=== PATIENT | male | born 1950 | race Caucasian/White ===

== ENCOUNTER → 2017-02-07 | Outpatient (CLI) | payer OTHER ==
[2016-08-15 14:21] VITALS: BP 144/76; PULSE 76
[~2017-02-07] MED LIST: AMLO5TAB2 PO; ASPCH81X PO; IBUP-1050 PO; LISI20TA3 PO
[2017-02-07 14:02] VITALS: BP 152/85; PULSE 60; TEMP 36.6; O2SAT 97
--- NOTE | 2017-02-07 16:39 | Radiation Oncology Follow-Up ---
Radiation Oncology Follow-Up Date of Visit February 07, 2017. (Tawana Patel PA-C) Reason For Visit 6 month follow-up (Tawana Patel PA-C) Radiation Completion Date 07/04/16 (Tawana Patel PA-C) Diagnosis (1) Prostate cancer Status: Resolved Onset Date: 12/13/2014 Location: both lobes of the prostate Histology Subtype: adenocarcinoma Stage: ll Permanent Comment: DIAGNOSIS: Prostate, adenocarcinoma, bhavesh 3 + 4, PSA 4.50 , cT1c, group IIA Prostate gland size - 58.2 cc Status post completion of radiation therapy 07/04/2016 received 8100 cGy Last Edited By: Tawana Patel on Aug 15, 2016 15:24 (Tawana Patel PA-C) History of Present Illness Mr. Sena is a 66-year-old gentleman who was previously diagnosed with low risk prostate cancer. He had an elevated PSA up to 4.5 in August 2014 ( Please note that no other PSAs were available at the time of our consultation later than 2013). He did meet with Dr. Lisa Cosme who did perform a transrectal ultrasound-guided biopsy on 12/13/2014 which only revealed prostate adenocarcinoma in 1/13 cores. The pathology revealed Bhavesh 3+3 prostate cancer. The patient elected to undergo active surveillance with a repeat biopsy in 1 year. This biopsy was performed on 02/20/2016 which revealed prostate cancer in 8/22 cores. The prostate gland was measured to be about 58- 60 mL. Bhavesh 3+4 and Bhavesh 3+3 prostate adenocarcinoma was identified with no evidence of perineural invasion. Dr. Cosme has recommended treatment for this patient given the fact that he has had an increase in the number of prostate biopsy cores positive as well as an increase in the Bhavesh score. We are now seeing the patient in consultation to discuss the role of radiation therapy. Currently, the patient is doing relatively well overall. His IPSS score is 7/ 35. He does not take any significant medications for his urinary symptoms. He states he is sexually active. His EPIC QOL score is 8/60. He has no history of a TURP. He has no history inflammatory bowel disease. He denies any hematuria or any other concerning symptoms. All options of treatment were discussed with the patient. His decision was to proceed with external beam treatment. Fiducial markers were placed. He completed treatment 07/04/2016. He received 8100 cGy. (Tawana Patel PA-C) Interim History He has been doing well over the past 6 months. Today he gave AUA score of 3. He does not require any medication to help with urination. He completed AUA score sheet and gave a score of 3. He completed and expanded prostate cancer index composite for clinical practice and gave a score of 0 of 12 and urinary incontinence symptoms. He gave a score of one of 12 and urinary irritation symptoms. He gave a score of 0 12 bowel symptoms. He gave a score of 3 of 12 and sexual symptoms. He gave a score of 0 12 and hormonal vitality symptoms. His total was 4 of 60. (Tawana Patel PA-C) Allergies Coded Allergies: No Known Allergies (Unverified Allergy, Mild, 12/12/05) Home Medications Scheduled Amlodipine Besylate (Norvasc), 1 TAB PO DAILY Aspirin (Aspirin Chewable), 81 MG PO DAILY Ibuprofen (Advil), 400 MG PO Q8H prn Lisinopril (Prinivil), 20 MG PO DAILY Review of Systems Gastrointestinal: Symptoms: WNL Oral: Symptoms: No Problems Respiratory: Symptoms: WNL Urinary: Symptoms: WNL, Nocturia Comments: Nocturia x 1, See AUA & EPIC Skin: Symptoms: No Problems (Tawana Patel PA-C) Physical Exam Vital Signs Date Time Temp Pulse Resp B/P Pulse Ox O2 Delivery O2 Flow Rate FiO2 02/07/17 14:02 36.6 60 14 152/85 97 Pain: Patient Pain Scale: 0 - 10 Initial Pain Intensity: 0.0 General Appearance: no apparent distress Eyes: normal inspection, EOMI ENT: normal ENT inspection, hearing grossly normal Respiratory/Chest: lungs clear, no respiratory distress, no accessory muscle use Cardiovascular: regular rate, rhythm, no gallop, no murmur Neurologic/Psychiatric: no motor/sensory deficits, alert, normal mood/affect Skin: warm/dry (Tawana Patel PA-C) Laboratory Studies Test 02/07/17 14:20 Prostate Specific Antigen 0.623 ng/ml (0.000-4.000) (Tawana Patel PA-C) Assessment & Plan Plan: The patient is also seen today by Dr. Mcrae. A PSA was drawn. He'll be notified as to the results. We asked him to return to our office in 6 months. He'll be seeing Dr. Cosme in 1 year. He may call if he has the questions or concerns in the interim. (Tawana Patel PA-C) I agree with note created by Tawana Patel PA-C. I reviewed the patient's chart and information with her. I have examined and evaluated the patient. I reviewed relevant clinical information and answered the patient's and/or family' s questions. (Veeral. Mcrae MD) Total Time In Follow-Up I spent 20 minutes speaking to the patient and performing examination. I spent 15 minutes reviewing information and completing this note. (Tawana Patel PA-C) I spent 15 minutes examining and counseling the patient. (Veeral. Mcrae MD) Copy To Tj Dickey MD; Lisa Cosme MD
== END | disposition home or self-care (01) ==
LOC: C.ONC 13:59
PROVIDERS: ATTEND Physician Assistant Medical
DX: Z08 Encounter for follow-up examination after completed treatment for malignant neoplasm (principal); Z92.3 Personal history of irradiation; Z85.46 Personal history of malignant neoplasm of prostate

== ENCOUNTER → 2017-08-20 | Outpatient (CLI) | payer OTHER ==
[2017-08-20 13:30] VITALS: BP 150/79; PULSE 66; TEMP 37; O2SAT 97
--- NOTE | 2017-08-20 15:00 | Radiation Oncology Follow-Up ---
Radiation Oncology Follow-Up Date of Visit Aug 20, 2017. Reason For Visit 6 month follow-up Radiation Completion Date 07/04/16 Diagnosis (1) Prostate cancer Status: Resolved Onset Date: 12/13/2014 Location: both lobes of the prostate Histology Subtype: adenocarcinoma Stage: ll Permanent Comment: DIAGNOSIS: Prostate, adenocarcinoma, bhavesh 3 + 4, PSA 4.50 , cT1c, group IIA Prostate gland size - 58.2 cc Status post completion of radiation therapy 07/04/2016 received 8100 cGy Last Edited By: Tawana Patel on Aug 15, 2016 15:24 History of Present Illness Mr. Sena was previously diagnosed with low risk prostate cancer. He had an elevated PSA up to 4.5 in August 2014 (Please note that no other PSAs were available at the time of our consultation later than 2013). He did meet with Dr. Lisa Cosme who did perform a transrectal ultrasound-guided biopsy on 12/13/2014 which only revealed prostate adenocarcinoma in 1/13 cores. The pathology revealed Bhavesh 3+3 prostate cancer. The patient elected to undergo active surveillance with a repeat biopsy in 1 year. This biopsy was performed on 02/20/2016 which revealed prostate cancer in 8/22 cores. The prostate gland was measured to be about 58-60 mL. Margaret 3+4 and Margaret 3+3 prostate adenocarcinoma was identified with no evidence of perineural invasion. Dr. Cosme has recommended treatment for this patient given the fact that he has had an increase in the number of prostate biopsy cores positive as well as an increase in the Margaret score. We are now seeing the patient in consultation to discuss the role of radiation therapy. Currently, the patient is doing relatively well overall. His IPSS score is 7/ 35. He does not take any significant medications for his urinary symptoms. He states he is sexually active. His EPIC QOL score is 8/60. He has no history of a TURP. He has no history inflammatory bowel disease. He denies any hematuria or any other concerning symptoms. All options of treatment were discussed with the patient. His decision was to proceed with external beam treatment. Fiducial markers were placed. He completed treatment 07/04/2016. He received 8100 cGy. Interim History He's been doing well over the past 6 months. He has noticed no difficulties with urination. He does not require any medication to help with urination. He gave an AUA score of 6. He completed and expanded prostate cancer index composite for clinical practice and gave a score of 2 of 12 in urinary incontinence symptoms. He gave a score of one of 12 in urinary irritation symptoms. He gave a score of 0 12 in bowel symptoms. He gave a score of 4 of 12 and sexual symptoms. He gave a score of 0 12 and hormonal vitality symptoms. His total with 7 of 60. He had a recheck PSA 02/07/2017 that was 0.623. Allergies Coded Allergies: No Known Allergies (Unverified Allergy, Mild, 12/12/05) Home Medications Scheduled Amlodipine Besylate (Norvasc), 1 TAB PO DAILY Aspirin (Aspirin Chewable), 81 MG PO DAILY Ibuprofen (Advil), 400 MG PO Q8H prn Lisinopril (Prinivil), 20 MG PO DAILY Review of Systems Gastrointestinal: Symptoms: WNL Oral: Symptoms: No Problems Respiratory: Symptoms: WNL Urinary: Symptoms: WNL, Nocturia Comments: Nocturia x 1, See AUA & EPIC Skin: Symptoms: No Problems Physical Exam Vital Signs Date Time Temp Pulse Resp B/P (MAP) Pulse Ox O2 Delivery O2 Flow Rate FiO2 08/20/17 13:30 37.0 66 14 150/79 97 Fatigue: None General Appearance: no apparent distress Eyes: normal inspection, EOMI ENT: normal ENT inspection, hearing grossly normal Respiratory/Chest: lungs clear, no respiratory distress, no accessory muscle use Cardiovascular: regular rate, rhythm, no gallop, no murmur Abdomen: non tender, soft, no organomegaly Extremities: no pedal edema Neurologic/Psychiatric: no motor/sensory deficits, alert, normal mood/affect Skin: warm/dry Pain Management Patient Reports Pain: No Pain Management Plan He denies pain and therefore does not require pain management. Laboratory Laboratory Results: were reviewed, and pertinent findings noted below Pathology Pathology Results: not applicable Imaging Imaging Studies: not applicable Assessment & Plan PSA was drawn today and he'll be notified as to results. He'll be seeing Dr. Cosme in 6 months. We asked him to return to our office in 1 year. He may call if he has any questions or concerns in the interim. Total Time In Follow-Up I spent 20 minutes speaking to the patient performing examination. I spent 15 minutes reviewing information and completing this note. Copy To Tj Dickey MD; Lisa Cosme MD
== END | disposition home or self-care (01) ==
LOC: C.ONC 13:25
PROVIDERS: ATTEND Physician Assistant Medical
DX: Z08 Encounter for follow-up examination after completed treatment for malignant neoplasm (principal); Z92.3 Personal history of irradiation; Z85.46 Personal history of malignant neoplasm of prostate

== ENCOUNTER 2019-08-05 06:34 | Inpatient (IN) ==
--- NOTE | 2019-07-22 16:29 | PAT Medication Instructions ---
Medication Instructions Date of Service July 22, 2019 Home Medications amlodipine 5 mg PO QPM aspirin [Aspir-81] 81 mg PO QPM lisinopril 20 mg PO QPM ASK your prescriber and surgeon aspirin [Aspir-81] 81 mg PO QPM Take evening before surgery amlodipine 5 mg PO QPM lisinopril 20 mg PO QPM Other Notes If you have any questions please call us at [phone] or [phone] or [phone] or [phone]
--- NOTE | 2019-07-23 09:55 | Anesthesiology Consultation ---
Date of Service July 23, 2019 Assessment & Plan (1) Encounter for pre-operative examination: Chart Review Chart Review: Pending: Refer to Additional Notes / Consult section (pending preop testing (labs, CXR)) and Patient seen in Pre Admission Testing Teaching & Discussion Pre-Anesthesia Teaching/Discussion Notes: Instructed NPO after midnight before surgery,except medications with 15 cc of water. Medication instructions provided according to the PAT guidelines. History Surgery Operation Date: 08/05/19 07:45 Proposed Procedures p L2-L5 Posterior Lumbar Decompression and Interbody Fusion, Possible L1-L2 Decompression and Fusion with Spinal Cord Monitoring - Antoine Mederos DO Height/Weight Height: 5 ft 10 in Weight: 90.7 kg Allergies Allergy/AdvReac Type Severity Reaction Status Date / Time No Known Allergies Allergy Mild Verified 07/16/19 08:35 Medications Home Medications Medication Instructions Recorded Confirmed Last Taken amlodipine 5 mg PO QPM 07/16/19 07/16/19 Unknown aspirin [Aspir-81] 81 mg PO QPM 07/16/19 07/16/19 Unknown lisinopril 20 mg PO QPM 07/16/19 07/16/19 Unknown Past Medical History Medical History Cancer hx prostate s/p XRT Hypertension Exercise / Class Metabolic Activity II 4-5 Yardwork/Stairs/Walk up hill (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 Physical Exam Vital Signs VITALS BP 136/83 P 57 TEMP 98.0 SP02 96%RA RESP 18 PHYSICAL Midly decreased cervical extension Full TMJ range of motion. TMD 4 finger breaths Mallampati Score 3 Dentition: missing side, crowns on molars Lungs: clear throughout to auscultation Cardiac: regular rate and rhythm, no murmurs noted Spine: normal Carotid arteries: negative bruit Extremities: no edema Trimmed mcclelland Testing Electrocardiogram Date: 07/08/19 SR with PSVC's at 78bpm. Otherwise "normal" ECG.
--- NOTE | 2019-07-23 10:25 | XRay Report ---
XR chest Pre-admission PA/Lat CLINICAL HISTORY: 69 years-old Male presenting with preoperative assessment, asymptomatic. TECHNIQUE: PA and lateral views of the chest were obtained. COMPARISON: None. FINDINGS: Cardiac silhouette is borderline enlarged. Focal opacity evident in the lower lung on lateral view ma y localize to the left lower lobe on frontal view. Lungs are otherwise clear. No pleural effusion or pneumothorax.. Scattered calcified granulomata. Degenerative changes of the thoracic spine. Upper abd omen normal. IMPRESSION: 1. Focal infiltrate suggested in the left lower lobe. An underlying nodule/lesion cannot be excluded . Consider chest CT for further evaluation. 2. Borderline cardiomegaly. Electronically signed by: Matty Mccullough M.D. 07/23/2019 10:24 AM
[2019-07-23 10:45] LABS: Basophils # (auto) 0.05 K/uL (0-0.2); Eosinophils # (auto) 0.35 K/uL (0-0.5); Eosinophils % (auto) 7.2 %; Hematocrit (blood only) 43.1 % (42-52); Hemoglobin 14.9 g/dL (14.0-18.0); Immature Granulocytes # (auto) 0.01 K/uL (0.00-0.02); Immature Granulocytes % (auto) 0.2 %; Lymphocytes % (auto) 22.5 %; Mean Corpuscular Hgb Conc 34.6 g/dL (32-36); Mean Corpuscular Volume 95.6 fL (80-100); Mean Platelet Volume 9.7 fL (7.4-10.4); Monocytes # (auto) 0.68 K/uL (0.11-0.59); Monocytes % (auto) 13.9 %; Neutrophils # (auto) 2.69 K/uL (1.4-6.5); Neutrophils % (auto) 55.2 %; Platelet Count 288 K/uL (130-400); RDW Coefficient of Variation 13.4 % (11.5-14.5); RDW Standard Deviation 46.4 fL (36.4-46.3); Red Blood Count 4.51 M/uL (4.7-6.1); White Blood Count 4.88 K/uL (4.8-10.8)
[2019-07-23 10:53] LABS: BUN Creatinine Ratio 16.4 (10-20); Calcium 9.3 mg/dl (8.5-10.1); Creatinine Clr Calc Pharmacy 91.4 ml/min; Est GFR (African American) 102.1; Est GFR (Non-African American) 88.1; Potassium 4.8 mmol/L (3.5-5.1)
[2019-07-23 10:58] LABS: Partial Thromboplastin Time 26.9 Seconds (21.0-31.0); Prothrombin Time 10.7 Seconds (9.0-12.0)
[~2019-08-05 06:34] MED LIST changes: +ACETAMINOPHEN 500 MG TAB PO SCH; -AMLO5TAB2 PO; -ASPCH81X PO; +CEFAZOLIN 2000MG 2,000 MG/15 ML SYR IV SCH; +CeleBREX 200 MG CAP PO SCH; +GABAPENTIN 300 MG CAP PO SCH; -IBUP-1050 PO; -LISI20TA3 PO; +LR 15ML/HR IV SCH
[2019-08-05] MEDS ORDERED: HYDROmorphone INJ 2 MG/ML SYR/VIAL ONE ×3 (08:08→12:44)
[2019-08-05] MEDS ORDERED: fentaNYL citrate 100 MCG/2 ML VIAL ONE ×9 (08:08→12:50)
[2019-08-05] MEDS ORDERED: fentaNYL citrate 100 MCG/2 ML VIAL IV PRN (08:36)
[2019-08-05] MEDS ORDERED: ONDANSETRON INJ 2 MG/ML 2 ML VIAL IV PRN ×2 (08:36→14:34)
[2019-08-05] MEDS ORDERED: ATROPINE SULFATE 0.1 MG/ML 10ML SYR IV PRN (08:36)
[2019-08-05] MEDS ORDERED: HYDROmorphone INJ 1 MG/ML SYRINGE IV PRN ×2 (08:36→14:34)
[2019-08-05] MEDS ORDERED: ePHEDrine sulfate 50 MG/ML AMP IV PRN (08:36)
--- NOTE | 2019-08-05 08:47 | History & Physical Bridge Note ---
Date of Service August 05, 2019 History & Physical Bridge Note I have examined the patient, reviewed the History & Physical and in the interval since the performance of the History & Physical I have noted the following changes of clinical significance: no changes noted
--- NOTE | 2019-08-05 08:48 | History & Physical Report ---
Date of Service August 05, 2019 Assessment & Plan (1) Neurogenic claudication due to lumbar spinal stenosis: Posterior lumbar decompression and interbody fusion L2-L5, possible decompression and fusion L1-L2. Present on Admission?: Yes History of Present Illness Chief Complaint: Back and leg pain Primary Care Provider: Tj Dickey MD This is a 69-year-old male who presents with chronic persistent back and leg pain. After failing extensive course of nonoperative care is here for surgical intervention. Allergies Allergy/AdvReac Type Severity Reaction Status Date / Time No Known Allergies Allergy Mild Verified 08/05/19 07:36 Home Medications Home Medications Medication Instructions Recorded Confirmed Type amlodipine 5 mg PO QPM 07/16/19 08/05/19 History aspirin [Aspir-81] 81 mg PO QPM 07/16/19 08/05/19 History lisinopril 20 mg PO QPM 07/16/19 08/05/19 History Past Med/Surg History Medical History Cancer hx prostate s/p XRT Hypertension Surgical History History of colonoscopy X MULTIPLE Social History Preferred Language: Tunisian Communication Ability: Effective Beliefs That Will Affect Care: None Current Living Situation: Spouse Other Information That Helps Us Care for You: No Feels Safe at Home: Yes Safety Concerns: Feels Safe At This Time Smoking Status: Never smoker Do You Dip or Chew Tobacco: No ; Second Hand Exposure: No ; Hx Alcohol Use: Yes Alcohol type: wine Hx Substance Use: No Physical Exam Physical Exam: Patient is alert and oriented neurologically intact Results & Data Vital Signs (Past 12 Hours) Vital Signs Temp Pulse Resp BP Pulse Ox 08/05/19 07:37 37 C 73 18 166/88 H 94
[2019-08-05] MEDS ORDERED: BUPIVACAINE/EPINEPHRINE 0.25% 1:200,000 30 ML VIAL ONE (08:55)
[2019-08-05] MEDS ORDERED: BACITRACIN INJ 50,000 UNIT VIAL ONE (08:56)
[2019-08-05] MEDS ORDERED: MIDAZOLAM HCL 1 MG/ML 2ML VIAL ONE (09:00)
[2019-08-05] MEDS ORDERED: ONDANSETRON INJ 2 MG/ML 2 ML VIAL ONE (09:51)
[2019-08-05] MEDS ORDERED: LIDOCAINE HCL 2% 2 ML VIAL/AMP(20MG/ML) INFIL ONE (09:51)
[2019-08-05] MEDS ORDERED: GLYCOPYRROLATE 0.2 MG/ML VIAL ONE (09:51)
[2019-08-05] MEDS ORDERED: DEXAMETHASONE SOD INJ 4 MG/ML VIAL ONE (09:51)
[2019-08-05] MEDS ORDERED: ePHEDrine sulfate 50 MG/ML SYR ONE ×2 (09:51→12:47)
[2019-08-05] MEDS ORDERED: ESMOLOL HCL INJ 10 MG/ML 10ML VIAL IV ONE (09:51)
[2019-08-05] MEDS ORDERED: ROCURONIUM BROMIDE 10 MG/ML 5 ML VIAL ONE ×2 (09:51→12:35)
[2019-08-05] MEDS ORDERED: NEOSTIGMINE METHYLSULFATE 1 MG/ML 10ML VIAL ONE (09:51)
[2019-08-05] MEDS ORDERED: PROPOFOL IV EMULSION 10 MG/ML 20 ML VIAL IV ONE (09:51)
[2019-08-05] MEDS ORDERED: ALBUMIN HUMAN 5% 12.5 GM/250 ML VIAL IV ONE (12:15)
[2019-08-05] MEDS ORDERED: KETOROLAC 30 MG/ML VIAL ONE ×2 (12:36→12:47)
[2019-08-05] MEDS ORDERED: CEFAZOLIN 250 MG/ML 1 GM VIAL ONE ×2 (12:36→12:47)
[2019-08-05 12:40] LABS: Hematocrit (blood only) 34.6 % (42-52); Hemoglobin 11.8 g/dL (14.0-18.0)
[2019-08-05] MEDS ORDERED: FLOSEAL HEMOSTATIC MATRIX 10ML TOP ONE (12:40)
--- NOTE | 2019-08-05 12:44 | Operative Report ---
Post Operative Report Pre & Post Diagnosis Operation Date: 08/05/19 09:05 Pre-Op Diagnosis: LUMBAR SPINAL STENOSIS W NEUROGENIC CLAUDICATION Post-Op Diagnosis: LUMBAR SPINAL STENOSIS W NEUROGENIC CLAUDICATION I identified the patient and participated in the time-out.: Yes Procedure Operation Date: 08/05/19 09:05 Actual Procedures #1 lumbar decompression medial facetectomy foraminotomies L1-L2 L2-3 L3-4 L4-5. #2 posterior spinal fusion L1-L2 L3-L4-L5. #3 placement posterior segmental instrumentation L1-L5. #4 interbody fusion L3-4 L4-5. #5 placed a peek cage 12 x 26 mm at L3-4 and 13 x 26 mm at L4-5. #6 placement of locally harvested versus autograft in the posterior lateral gutters. #7 placement infuse collagen sponge, master graft in the posterior lateral gutters and ostial amp and body space. Surgeon Antoine Mederos, Detective Supervisor Violeta Lai Estimated Blood Loss 1,000 Findings See Below Patient had severe multilevel spinal stenosis and with an EBL in excess of 1 L created significant technical difficulty in order to perform the procedure at at least 40% increase in operative time. Specimens None Indications This is a 69-year-old male who presents with above-mentioned diagnosis after failing such course of nonoperative care like to undergo above-mentioned procedure. Description of Procedure Patient was met with identified informed consent obtained. Patient was then taken to the operative suite underwent intubation placed in the prone position the Octaviano table on top of the Wilbert frame. All bony prominences well-padded eyes inspected to ensure no external pressure placed upon. This point the lumbar spine was prepped and draped in normal sterile fashion. Sharp dissection with the assistance of Bovie cautery was performed down to and exposing the lamina transverse processes of L1-L2 L3-L4-L5 bilaterally. From a caudal to cephalad fashion complete laminectomy of L4 L3 L2 L1 was performed including bilateral medial facetectomies and foraminotomies addressing severe stenosis. Pedicle screws were then placed in L1-L2 L3-L4-L5 bilaterally with assistance of fluoroscopy and appropriately sized zonia placed. By way of a transforaminal approach on the left complete discectomy of L4-5 was performed endplates curett ed to subcortical bleeding bone and the 13 x 26 mm peek cage filled with osteo- bone graft tapped in position. Then proceeded to L3-[address] of a transforaminal approach on the left complete discectomy was performed endplates coated to subcortical being bone and a 12 x 26 mm peek cage filled with ostium bone graft tapped position. The rods were then locked in final position bilaterally. A cross-link locked in position. The transverse processes of L1- L2 L3-L4-L5 bur to subcortical bleeding bone. Infuse collagen sponge master graft and local autograft placed in the posterior lateral gutters. 15 round MILAN drain inserted. The incision was then closed with 1 Vicryl the fascia 2-0 Vicryl subtenons in 4 Monocryl for final skin closure. Steri-Strip sterile dressings placed. Patient will continue to PACU stable disc. Please note Violeta Lai present at the entire procedure involved the patient positioning complex portions of the surgery and final skin closure. Lastly spinal cord monitoring was utilized that the procedure no changes noted. I attest to the content of the Intraoperative Record and any orders documented therein. Any exceptions are noted below.
[2019-08-05] MEDS ORDERED: PHENYLEPHRINE 100MCG/ML 5ML SYR ONE (12:47)
--- NOTE | 2019-08-05 13:30 | Fluoroscopy Report ---
FL lumbar spine 2-3V CLINICAL HISTORY: 69 years-old Male presenting with L2-L5 PSF, POSSIBLE L1-L2. TECHNIQUE: 3 fluoroscopic image(s) recorded as part of an intraoperative procedure. COMPARISON: 06/26/2016. FINDINGS/IMPRESSION: Posterior bilateral transpedicular Schoenrock fixation of L2-L5 with interbody spacers at L3-4 and L4 -5. Laminectomy defects also noted. Normal anatomic alignment. No gross hardware breakage. Please see surgical report for further details. Fluoroscopy dosage (mGy): 22.26. Fluoroscopy time: 26.9 seconds. Number or time of high level fluoroscopy (HLF), digital spot, or digital subtraction images: 0. Electronically signed by: Matty Mccullough M.D. 08/05/2019 1:28 PM
--- NOTE | 2019-08-05 13:40 | Anesthesiology Progress Note ---
Date of Service August 05, 2019 Anesthesia Post Procedure Vital Signs Vital Signs: Temp Pulse Pulse Resp BP Pulse Ox 08/05/19 13:30 83 13 151/79 H 100 08/05/19 13:20 85 12 154/79 H 99 08/05/19 13:12 88 12 155/85 H 100 08/05/19 13:04 36.5 C 85 17 159/93 H 99 08/05/19 07:37 37 C 73 18 166/88 H 94 Pain Intensity Lower Medial Back: Pain Intensity: 0 Transfer of Care Handoff Completed per policy Notes Mental Status: alert / awake / arousable and participated in evaluation Patient Amnestic to Procedure: Yes Nausea / Vomiting: adequately controlled Pain: adequately controlled Airway Patency, RR, SpO2: stable & adequate BP & HR: stable & adequate Hydration State: stable & adequate Anesthetic Complications: no major complications apparent and Pt Satisfied with anesthetic care
[2019-08-05] MEDS ORDERED: LARYING-O-JET KIT (LTA) ONE (14:12)
[2019-08-05] MEDS ORDERED: VOLUVEN IN NSS IV ONE (14:31)
[2019-08-05] MEDS ORDERED: ONDANSETRON 4 MG OD TAB PO PRN (14:34)
[2019-08-05] MEDS ORDERED: TRAMADOL HCL 50 MG TABLET PO PRN (14:34)
[2019-08-05] MEDS ORDERED: MAGNESIUM HYDROXIDE SUSP 30 ML UDC PO PRN (14:34)
[2019-08-05] MEDS ORDERED: LORazepam 0.5 MG/1 ML VIAL IV PRN (14:34)
[2019-08-05] MEDS ORDERED: DO NOT ADMINISTER FLU VACCINE PRN (14:34)
[2019-08-05] MEDS ORDERED: NALOXONE HCL 0.4 MG/1 ML VIAL/CARP IV PRN (14:34)
[2019-08-05] MEDS ORDERED: METOCLOPRAMIDE HCL INJ 5 MG/ML 2 ML VIAL IV PRN (14:34)
[2019-08-05] MEDS ORDERED: FAMOTIDINE 20 MG TAB PO PRN (14:34)
[2019-08-05] MEDS ORDERED: DO NOT ADMINISTER PNEUMOCOCCAL VACCINE PRN (14:34)
[2019-08-05] MEDS ORDERED: LORazepam 0.5 MG TAB PO PRN (14:34)
[2019-08-05] MEDS ORDERED: HYDROmorphone INJ 0.5 MG/0.5 ML SYR IV PRN (14:34)
[2019-08-05] MEDS ORDERED: SOD PHOSPHATE/SOD BIPHOSPHATE ENEMA 132 ML BTL PR PRN (14:34)
[2019-08-05] MEDS ORDERED: BISACODYL 10 MG SUPP PR PRN (14:34)
[2019-08-05] MEDS ORDERED: ALUMINUM/MAGNESIUM SUSP 30 ML UDC PO PRN (14:34)
[2019-08-05] MEDS ORDERED: PROMETHAZINE HCL 12.5 MG in SODIUM CHLORIDE 0.9% 50 ML IV PRN (14:34)
[2019-08-05] MEDS ORDERED: ACETAMINOPHEN 1,000 MG/100 ML VIAL IV PRN (14:34)
--- NOTE | 2019-08-05 15:14 | Consultation ---
Date of Consultation August 05, 2019 Assessment & Plan (1) Neurogenic claudication due to lumbar spinal stenosis: POD #[address] Mederos Actual Procedures #1 lumbar decompression medial facetectomy foraminotomies L1-L2 L2-3 L3-4 L4-5. #2 posterior spinal fusion L1-L2 L3-L4-L5. #3 placement posterior segmental instrumentation L1-L5. #4 interbody fusion L3-4 L4-5. #5 placed a peek cage 12 x 26 mm at L3-4 and 13 x 26 mm at L4-5. #6 placement of locally harvested versus autograft in the posterior lateral gutters. #7 placement infuse collagen sponge, master graft in the posterior lateral gutters and ostial amp and body space. Pt with EBL 1,000ml; MILAN drain outpt 280ml H/H post op 11.8 & 43.1 He is type/crossed for 2 units will need to monitor H/H closely pain/wound management per ortho activity and therapy as directed by ortho encourage incentive spirometry and wean off O2 (2) Postoperative anemia due to acute blood loss: EBL 1000ml; MILAN drain 280ml thus far H/H post op 11.8 & 43.1 He is type/crossed for 2 units will need to monitor H/H closely (3) Hypertension: blood pressure stable continue amlodipine and lisinopril with hold parameters (4) HLD (hyperlipidemia): Previously on statin pt currently states not taking atorvastatin Last cholesterol panel 03/2019 CHOL 216, LDL 118, HDL 84, trig 69 (5) Laceration of occipital scalp: sukhi to laceration of occiptal scalp placed 08/01/19 - to remain in 10-14 days clean bandage to area (6) Abnormal CT scan, chest: Done pre operatively 08/03/19: CT scan chest revealed:1. Multiple small bilateral calcified granulomas. Few punctate bilateral noncalcified pulmonary nodules, nonspecific. Consider a follow up chest CT in 12 months for re-evaluation. 2. Dilated ascending aorta measuring up to 4.4 x 4.4 cm. Continued attention on the follow up studies suggested. 3. A small probable hemangioma in segment 2 of the liver measuring 1.5 cm. An irregular enhancing focus in the dome of the liver, not further characterized on this exam. An additional irregular hypodensity in the posterior dome of the liver measuring 2.1 x 1.6 cm, not further characterized on this exam. Further evaluation with an abdominal MRI is suggested. 4. Multiple tiny pancreatic cystic lesions, not further evaluated with CT. Consider further evaluation with an abdominal MRI and MRCP. Will need further evaluation as outpt with PCP upon discharge (7) DVT prophylaxis: SCD/TEDS per ortho Disposition: per primary Follow up: PCP Dr. Dickey upon discharge Patient was seen and examined in collaboration with Dr. Gaston, please see addendum Starting 08/06/19 pt will be followed by Dr. Rubin Thank you for this consultation. We will follow the patient with you during their hospital stay. You can reach a member of the [facility] Team 08/04 via pager @ [phone]. Supervising Physician Co-Signing Physician Notes Attending addendum: The patient was seen and examined in medical floor She is a status post L1-L5 decompression and fusion, POD #0 Complaints of numbness in the legs but denies any other symptoms Denies any chest pain, palpitation, shortness of breath, abdominal pain, nausea and/or vomiting and no neurological symptoms On examination Lying in bed comfortably Hemodynamically stable Chest-clear to auscultate bilaterally Heart-S1-S2, no murmur Abdomen-benign Extremities-negative for any edema Preop labs, EKG and imaging studies reviewed Remains stable postoperatively with some back pain and numbness in the legs Medically stable We will check CBC n.p.o. with electrolytes tomorrow Agree with assessment and plan as outlined above by EDWIN [address] Dr History of Present Illness Requesting Physician: Dr. Mederos Reason for Consultation: Post op medical management Attending Physician: Antoine Mederos DO History of Present Illness This is a 69 yr old M who has significant PMH of HTN, HLD, prostate Ca s/p radiation, dilated ascending aorta 4.4cm x 4.4cm who presents to [facility] for elective lumbar procedure by Dr. Mederos due to lumbar spinal stenosis with neurogenic claudication. He failed outpt conservative m anagement. Post operatively he offers no complaints. Complains of incisional discomfort, 12/24. Denies f/c/s, BAXTER, syncope, dizziness, chest pain, sob, cough, hemoptysis, n/v/d, abdominal pain. Overall good appetite. Very active male works on [employer]. He elicits 5 days ago he fell off a truck at work requiring sukhi to scalp due to laceration. Allergies Allergy/AdvReac Type Severity Reaction Status Date / Time No Known Allergies Allergy Mild Verified 08/05/19 07:36 Home Medications Home Medications Medication Instructions Recorded Confirmed Type amlodipine 5 mg PO QPM 07/16/19 08/05/19 History aspirin [Aspir-81] 81 mg PO QPM 07/16/19 08/05/19 History lisinopril 20 mg PO QPM 07/16/19 08/05/19 History Patient History Medical History (Updated 08/05/19 @ 15:25 by Ursula Hunt PA-C) Abnormal CT scan, chest 08/03/19 1. Multiple small bilateral calcified granulomas. Few punctate bilateral noncalcified pulmonary nodules, nonspecific. Consider a follow up chest CT in 12 months for re-evaluation. 2. Dilated ascending aorta measuring up to 4.4 x 4.4 cm. Continued attention on the follow up studies suggested. 3. A small probable hemangioma in segment 2 of the liver measuring 1.5 cm. An irregular enhancing focus in the dome of the liver, not further characterized on this exam. An additional irregular hypodensity in the posterior dome of the liver measuring 2.1 x 1.6 cm, not further characterized on this exam. Further evaluation with an abdominal MRI is suggested. 4. Multiple tiny pancreatic cystic lesions, not further evaluated with CT. Consider further evaluation with an abdominal MRI and MRCP. Pt to have MRI of abdomen after surgical intervention for LSS Ascending aorta dilation 4.4cm x 4.4cm noted incidentally on 07/2019 CT - to be followed yearly Cancer hx prostate s/p XRT HLD (hyperlipidemia) Hypertension (Chronic) Lumbar disc disease (Chronic) Scheduled for decompression and fusion on 08/05/2019 Prostate cancer (Resolved 12/13/14) "DIAGNOSIS: Prostate, adenocarcinoma, bhavesh 3 + 4, PSA 4.50, cT1c, group IIA Prostate gland size - 58.2 cc Status post completion of radiation therapy 07/04/2016 received 8100 cGy" On 03/08/16 13:34 Vesmita Mcrae wrote "DIAGNOSIS: Prostate, adenocarcinoma, bhavesh 3 + 4, PSA 4.50, cT1c, group IIA Prostate gland size - 58.2 cc " Surgical History History of colonoscopy X MULTIPLE Family History Father Myocardial infarction, Onset Age: 36 Social History (Updated 08/05/19 @ 15:11 by Ursula Hunt PA-C) Preferred Language: Greenlandic Communication Ability: Effective Beliefs That Will Affect Care: None Current Living Situation: Spouse Other Information That Helps Us Care for You: No Feels Safe at Home: Yes Safety Concerns: Feels Safe At This Time Smoking Status: Never smoker Do You Dip or Chew Tobacco: No ; Second Hand Exposure: No ; Hx Alcohol Use: Yes Alcohol type: wine Alcohol Intake Frequency Comment: 2- 3x/wk; approp 4-5 drinks weekly Hx Substance Use: No Review of Systems Review of Systems: All systems reviewed & are unremarkable except as noted in HPI & below Physical Exam Physical Exam: Constitutional: WD/WN, Male, vitals as above, NAD, sitting up in bed, flat affected, conversing easily Head: Normocephalic, + R occipital laceration noted with sukhi for closure, CDI Eyes: PERRL, conjunctivae normal, anicteric sclerae ENMT: external ear and nose normal, oropharynx dry mucous membranes Neck: trachea midline, no thyromegaly normal visual inspection Respiratory: normal respiratory effort, lungs clear to auscultation, no wheeze, rales, rhonchi. Normal insp/exp effort, no accessory muscle use Cardiovascular: RRR, no murmur, no edema Vessels: no JVD or carotid bruit Chest: normal inspection of chest Abdomen: normal bowel sounds, firm, protuberant, nontender, no hepatosplenomegaly Musculoskeletal: no cyanosis or clubbing, extremities motor strength 5/5 Skin: no rashes, warm and dry normal turgor Neurologic: PERRL, EOMI, accommodation nl, no face palsy, no dysarthria CN's II-XI intact bilaterally and moves all extremities Psychiatric: A+Ox3, flat affect Lymphatic: no cervical or axillary lymphadenopathy : +campbell with clear yellow urine Results & Data Vital Signs (Past 12 Hours) Vital Signs Temp Pulse Pulse Resp BP Pulse Ox 08/05/19 14:30 36.6 C 93 H 15 136/71 97 08/05/19 14:16 89 16 144/79 H 98 08/05/19 14:01 88 13 143/77 H 100 08/05/19 13:45 96 H 16 145/86 H 100 08/05/19 13:40 36.5 C 87 15 151/81 H 100 08/05/19 13:30 83 13 151/79 H 100 08/05/19 13:20 85 12 154/79 H 99 08/05/19 13:12 88 12 155/85 H 100 08/05/19 13:04 36.5 C 85 17 159/93 H 99 08/05/19 07:37 37 C 73 18 166/88 H 94 Laboratory Results Short CBC 08/05/19 Range/Units 12:33 Hgb 11.8 L (14.0-18.0) g/dL Hct 34.6 L (42-52) % Diagnostic Findings CXR: IMPRESSION: 1. Focal infiltrate suggested in the left lower lobe. An underlying nodule/lesion cannot be excluded. Consider chest CT for further evaluation. 2. Borderline cardiomegaly. Medications Administered Discontinued Medications Acetaminophen (Tylenol) 1,000 mg PO PREOP KARINA Stop: 08/05/19 18:00 Last Admin: 08/05/19 07:56 Dose: 1,000 mg Documented by: [id number] Bacitracin (Bacitracin) Confirm Administered Dose 50,000 units .ROUTE .STK-MED ONE Stop: 08/05/19 08:57 Last Admin: 08/05/19 10:21 Dose: 50,000 units Documented by: [id number] Bupivacaine HCl/Epinephrine Bitart (Bupivacaine 0.25%-Epi [id number]) Confirm Administered Dose 30 ml .ROUTE .STK-MED ONE Stop: 08/05/19 08:56 Last Admin: 08/05/19 09:46 Dose: 29 ml Documented by: [id number] Celecoxib (Celebrex) 200 mg PO PREOP KARINA Stop: 08/05/19 18:00 Last Admin: 08/05/19 07:56 Dose: 200 mg Documented by: [id number] Gabapentin (Neurontin) 300 mg PO PREOP KARINA Stop: 08/05/19 18:00 Last Admin: 08/05/19 07:56 Dose: 300 mg Documented by: [id number] Lactated Ringer's (Lr) 1,000 mls @ 15 mls/hr IV .Q24H KARINA Stop: 08/06/19 05:59 Last Infusion: 08/05/19 14:42 Dose: 0 mls/hr Documented by: [id number] Infusion: 08/05/19 09:12 Dose: 0 mls/hr Documented by: [id number] Admin: 08/05/19 07:57 Dose: 15 mls/hr Documented by: [id number] Cefazolin Sodium (Ancef 2000mg) 2,000 mg in 15 mls @ 3.75 mls/min IV PREOP KARINA; Protocol Stop: 08/05/19 18:00 Last Admin: 08/05/19 09:12 Dose: 3.75 mls/min Documented by: [id number] Miscellaneous (Floseal Hemostatic Matrix 10ml) 34 ml TOP ONCE ONE Stop: 08/05/19 12:41 Last Admin: 08/05/19 14:43 Dose: Not Given Documented by: [id number] ECG Rate (beats per minute): 73 Rhythm: sinus rhythm Findings: + PVC (1) Laceration of occipital scalp Encounter type: initial encounter Qualified Code(s): S01.01XA - Laceration without foreign body of scalp, initial encounter
[2019-08-05] MEDS: CEFAZOLIN 2000MG 2,000 MG/15 ML SYR IV SCH ×2 (17:05→23:54)
[2019-08-05] MEDS: KETOROLAC 30 MG/ML VIAL IV SCH ×2 (17:05→21:24)
[2019-08-05] MEDS: LACTATED RINGER'S 1,000 ML IV SCH ×2 (17:13→23:54)
[2019-08-05] MEDS: ASPIRIN 81 MG ECTAB PO SCH (20:22)
[2019-08-05] MEDS: DOCUSATE SODIUM/SENNA 50/8.6MG TAB PO SCH (20:23)
[2019-08-05] MEDS ORDERED: LISINOPRIL 20 MG TAB PO SCH (21:00)
[2019-08-05] MEDS ORDERED: AMLODIPINE BESYLATE 5 MG TAB PO SCH (21:00)
[2019-08-06] MEDS: KETOROLAC 30 MG/ML VIAL IV SCH ×2 (05:00→09:23)
[2019-08-06] MEDS: LACTATED RINGER'S 1,000 ML IV SCH (05:01)
[2019-08-06] MEDS: POLYETHYLENE (MIRALAX) 17 GM PACK PO SCH ×4 (05:02→23:51)
[2019-08-06] MEDS: ACETAMINOPHEN 500 MG TAB PO PRN (05:08)
[2019-08-06 06:39] LABS: Basophils # (auto) 0.01 K/uL (0-0.2); Basophils % (auto) 0.1 %; Eosinophils # (auto) 0.01 K/uL (0-0.5); Eosinophils % (auto) 0.1 %; Hematocrit (blood only) 28.5 % (42-52); Hemoglobin 9.8 g/dL (14.0-18.0); Immature Granulocytes # (auto) 0.03 K/uL (0.00-0.02); Immature Granulocytes % (auto) 0.2 %; Lymphocytes # (auto) 0.67 K/uL (1.2-3.4); Lymphocytes % (auto) 5.4 %; Mean Corpuscular Hemoglobin 32.6 pg (25-34); Mean Corpuscular Hgb Conc 34.4 g/dL (32-36); Mean Corpuscular Volume 94.7 fL (80-100); Mean Platelet Volume 8.5 fL (7.4-10.4); Neutrophils # (auto) 10.75 K/uL (1.4-6.5); Neutrophils % (auto) 86.2 %; Platelet Count 191 K/uL (130-400); RDW Coefficient of Variation 13.6 % (11.5-14.5); RDW Standard Deviation 46.9 fL (36.4-46.3); Red Blood Count 3.01 M/uL (4.7-6.1); White Blood Count 12.47 K/uL (4.8-10.8)
[2019-08-06 07:18] LABS: BUN Creatinine Ratio 17.3 (10-20); Calcium 8.2 mg/dl (8.5-10.1); Creatinine Clr Calc Pharmacy 97.6 ml/min; Est GFR (African American) 105.8; Est GFR (Non-African American) 91.3; Potassium 3.9 mmol/L (3.5-5.1)
--- NOTE | 2019-08-06 10:27 | Hospitalist Progress Note ---
Date of Service August 06, 2019 Assessment & Plan (1) Neurogenic claudication due to lumbar spinal stenosis: POD #[address] Mederos Actual Procedures #1 lumbar decompression medial facetectomy foraminotomies L1-L2 L2-3 L3-4 L4-5. #2 posterior spinal fusion L1-L2 L3-L4-L5. #3 placement posterior segmental instrumentation L1-L5. #4 interbody fusion L3-4 L4-5. #5 placed a peek cage 12 x 26 mm at L3-4 and 13 x 26 mm at L4-5. #6 placement of locally harvested versus autograft in the posterior lateral gutters. #7 placement infuse collagen sponge, master graft in the posterior lateral gutters and ostial amp and body space. Pt with EBL 1,000ml; MILAN drain outpt 425ml H/H post op .05/13.5 He is type/crossed for 2 units will need to monitor H/H closely pain/wound management per ortho activity and therapy as directed by ortho encourage incentive spirometry (2) Postoperative anemia due to acute blood loss: EBL 1000ml; MILAN drain 425ml thus far H/H post op .05/13. monitor (3) Hypertension: blood pressure on low side this morning hold amlodipine/lisinopril for now (4) HLD (hyperlipidemia): Previously on statin pt currently states not taking atorvastatin Last cholesterol panel 03/2019 CHOL 216, LDL 118, HDL 84, trig 69 (5) Laceration of occipital scalp: sukhi to laceration of occiptal scalp placed 08/01/19 - to remain in 10-14 days clean bandage to area (6) Abnormal CT scan, chest: Done pre operatively 08/03/19: CT scan chest revealed:1. Multiple small bilateral calcified granulomas. Few punctate bilateral noncalcified pulmonary nodules, nonspecific. Consider a follow up chest CT in 12 months for re-evaluation. 2. Dilated ascending aorta measuring up to 4.4 x 4.4 cm. Continued attention on the follow up studies suggested. 3. A small probable hemangioma in segment 2 of the liver measuring 1.5 cm. An irregular enhancing focus in the dome of the liver, not further characterized on this exam. An additional irregular hypodensity in the posterior dome of the liver measuring 2.1 x 1.6 cm, not further characterized on this exam. Further evaluation with an abdominal MRI is suggested. 4. Multiple tiny pancreatic cystic lesions, not further evaluated with CT. Consider further evaluation with an abdominal MRI and MRCP. Will need further evaluation as outpt with PCP upon discharge (7) DVT prophylaxis: SCD/TEDS per ortho Disposition: per primary Follow up: PCP Dr. Dickey upon discharge Patient was seen and examined in collaboration with Dr. Rubin, please see addendum Thank you for this consultation. We will follow the patient with you during their hospital stay. You can reach a member of the [facility] Hospitalist Team 08/04 via pager @ [phone]. Supervising Physician Co-Signing Physician Notes I have seen and examined the patient and have discussed the case with the provider above. I agree with the assessment and plan as stated. My physical exam findings include a comfortable appearing man who is eating dinner. Breath sounds are clear and he is not in respiratory distress. His heart exam is normal and he is euvolemic. He is mentating normally. There is no loss of sensation in his feet and musculoskeletal exam is normal. Drain within incision site. Cont current plan. Holding DVT prophy for at least 48 hours. Cont SCDs. Thank you for this consultation. DO Elis Rubin Patient seen and examined in room 324. Follow-up lumbar decompression fusion POD #1. He offers no acute concerns this morning. Has mild incisional discomfort. Denies fever, chills, sweats, lightheadedness, dizziness, chest pain, shortness of breath, nausea, vomiting, abdominal pain. Tolerating oral diet. Passing flatus, no BM. Continues to have Kamara catheter in place. States he has not been up and walking yet this morning. Review of Systems Review of Systems: All systems reviewed & are unremarkable except as noted in HPI & below Physical Exam Physical Exam: Gen: WD/WN, NAD, A&O x3 HEENT: Normocephalic, + occipital laceration, sukhi intact clean and dry, conjunctivae moist, sclerae anicteric, mucous membranes moist. Lung: Clear to Auscultation bilaterally, no wheezes/rales/rhonchi Heart: Regular rate, regular rhythm, no murmurs, rubs, or gallops Abdomen: Soft, NT, ND +BS x 4 Extremities: No edema, lumbar dressing CDI, MILAN drain intact with serosanguineous drainage Skin: Warm, no rash, negative turgor. : Kamara catheter draining clear yellow hearing Results & Data Vital Signs (Past 12 Hours) Vital Signs Temp Pulse Resp BP Pulse Ox 08/06/19 07:40 36.8 C 66 16 106/56 L 98 08/06/19 02:54 36.8 C 67 16 109/62 96 08/05/19 23:42 36.5 C 69 16 104/61 96 Laboratory Results Short CBC 08/05/19 08/06/19 Range/Units 12:33 06:31 WBC 12.47 H (4.8-10.8) K/uL Hgb 11.8 L 9.8 L (14.0-18.0) g/dL Hct 34.6 L 28.5 L (42-52) % Plt Count 191 (130-400) K/uL BMP 08/06/19 06:31 Sodium 137 Potassium 3.9 Chloride 106 Carbon Dioxide 27 BUN 13 Creatinine 0.77 Glucose 121 H Calcium 8.2 L Medications Administered Acetaminophen (Tylenol) 1,000 mg PO Q8H PRN PRN Reason: MILD Pain Rating 1,2,3 Stop: 09/04/19 14:33 Last Admin: 08/06/19 05:08 Dose: 1,000 mg Documented by: [id number] Amlodipine Besylate (Norvasc) 5 mg PO QPM KARINA Stop: 09/04/19 20:59 Last Admin: 08/05/19 20:22 Dose: 5 mg Documented by: [id number] Aspirin (Ecotrin Ectab) 81 mg PO QPM KARINA Stop: 09/04/19 20:59 Last Admin: 08/05/19 20:22 Dose: 81 mg Documented by: [id number] Lisinopril (Zestril) 20 mg PO QPM KARINA Stop: 09/04/19 20:59 Last Admin: 08/05/19 20:23 Dose: 20 mg Documented by: [id number] Polyethylene Glycol (Miralax Powder Packet) 17 gm PO Q6 KARINA Stop: 09/05/19 05:59 Last Admin: 08/06/19 05:02 Dose: 17 gm Documented by: [id number] Senna/Docusate Sodium (Senokot S) 2 tab PO HS KARINA Stop: 09/04/19 20:59 Last Admin: 08/05/19 20:23 Dose: 2 tab Documented by: [id number] Discontinued Medications Acetaminophen (Tylenol) 1,000 mg PO PREOP KARINA Stop: 08/05/19 18:00 Last Admin: 08/05/19 07:56 Dose: 1,000 mg Documented by: [id number] Bacitracin (Bacitracin) Confirm Administered Dose 50,000 units .ROUTE .STK-MED ONE Stop: 08/05/19 08:57 Last Admin: 08/05/19 10:21 Dose: 50,000 units Documented by: [id number] Bupivacaine HCl/Epinephrine Bitart (Bupivacaine 0.25%-Epi [id number]) Confirm Administered Dose 30 ml .ROUTE .STK-MED ONE Stop: 08/05/19 08:56 Last Admin: 08/05/19 09:46 Dose: 29 ml Documented by: [id number] Celecoxib (Celebrex) 200 mg PO PREOP KARINA Stop: 08/05/19 18:00 Last Admin: 08/05/19 07:56 Dose: 200 mg Documented by: [id number] Gabapentin (Neurontin) 300 mg PO PREOP KARINA Stop: 08/05/19 18:00 Last Admin: 08/05/19 07:56 Dose: 300 mg Documented by: [id number] Lactated Ringer's (Lr) 1,000 mls @ 15 mls/hr IV .Q24H KARINA Stop: 08/06/19 05:59 Last Infusion: 08/05/19 14:42 Dose: 0 mls/hr Documented by: [id number] Infusion: 08/05/19 09:12 Dose: 0 mls/hr Documented by: [id number] Admin: 08/05/19 07:57 Dose: 15 mls/hr Documented by: [id number] Cefazolin Sodium (Ancef 2000mg) 2,000 mg in 15 mls @ 3.75 mls/min IV PREOP KARINA; Protocol Stop: 08/05/19 18:00 Last Admin: 08/05/19 09:12 Dose: 3.75 mls/min Documented by: [id number] Lactated Ringer's (Lr) 1,000 mls @ 150 mls/hr IV .Q6H40M KARINA Stop: 09/04/19 14:33 Last Admin: 08/06/19 05:01 Dose: Not Given Documented by: [id number] Infusion: 08/06/19 05:01 Dose: 0 mls/hr Documented by: [id number] Admin: 08/05/19 23:54 Dose: 150 mls/hr Documented by: [id number] Infusion: 08/05/19 23:53 Dose: 150 mls/hr Documented by: [id number] Infusion: 08/05/19 22:26 Dose: 150 mls/hr Documented by: [id number] Admin: 08/05/19 17:13 Dose: 150 mls/hr Documented by: [id number] Cefazolin Sodium (Ancef 2000mg) 2,000 mg in 15 mls @ 3.75 mls/min IV Q8H KARINA; Protocol Stop: 08/06/19 01:03 Last Admin: 08/05/19 23:54 Dose: 3.75 mls/min Documented by: [id number] Admin: 08/05/19 17:05 Dose: 3.75 mls/min Documented by: [id number] Ketorolac Tromethamine (Toradol) 30 mg IV Q6H KARINA Stop: 08/06/19 10:01 Last Admin: 08/06/19 09:23 Dose: 30 mg Documented by: [id number] Admin: 08/06/19 05:00 Dose: 30 mg Documented by: [id number] Admin: 08/05/19 21:24 Dose: 30 mg Documented by: [id number] Admin: 08/05/19 17:05 Dose: 30 mg Documented by: [id number] Miscellaneous (Floseal Hemostatic Matrix 10ml) 34 ml TOP ONCE ONE Stop: 08/05/19 12:41 Last Admin: 08/05/19 14:43 Dose: Not Given Documented by: [id number] (1) Laceration of occipital scalp Encounter type: initial encounter Qualified Code(s): S01.01XA - Laceration without foreign body of scalp, initial encounter
--- NOTE | 2019-08-06 10:59 | Anesthesiology Progress Note ---
Date of Service August 06, 2019 Anesthesia Post Procedure Vital Signs Vital Signs: Temp Pulse Pulse Resp BP Pulse Ox 08/06/19 07:40 36.8 C 66 16 106/56 L 98 08/06/19 02:54 36.8 C 67 16 109/62 96 08/05/19 23:42 36.5 C 69 16 104/61 96 08/05/19 19:31 36.4 C L 66 16 134/74 96 08/05/19 17:41 36.5 C 78 16 135/77 99 08/05/19 15:08 36.5 C 71 16 116/69 97 08/05/19 14:30 36.6 C 93 H 15 136/71 97 08/05/19 14:16 89 16 144/79 H 98 08/05/19 14:01 88 13 143/77 H 100 08/05/19 13:45 96 H 16 145/86 H 100 08/05/19 13:40 36.5 C 87 15 151/81 H 100 08/05/19 13:30 83 13 151/79 H 100 08/05/19 13:20 85 12 154/79 H 99 08/05/19 13:12 88 12 155/85 H 100 08/05/19 13:04 36.5 C 85 17 159/93 H 99 Pain Intensity Lower Medial Back: Pain Intensity: 2 Notes Mental Status: alert / awake / arousable and participated in evaluation Nausea / Vomiting: adequately controlled Pain: adequately controlled Airway Patency, RR, SpO2: stable & adequate BP & HR: stable & adequate Hydration State: stable & adequate Anesthetic Complications: no major complications apparent
--- NOTE | 2019-08-06 15:18 | Orthopedic Progress Note ---
Date of Service August 06, 2019 Assessment & Plan (1) Neurogenic claudication due to lumbar spinal stenosis: This time we will continue physical therapy monitor his MILAN output anticipate discharge home this weekend. Present on Admission?: Yes Subjective Back pain is controlled leg symptoms markedly improved. Physical Exam Physical Exam: On exam he is in the bed at this time. Is good strength testing. Appears comfortable. Results & Data Vital Signs (Past 12 Hours) Vital Signs Temp Pulse Resp BP Pulse Ox 08/06/19 11:30 36.5 C 64 16 116/68 96 08/06/19 07:40 36.8 C 66 16 106/56 L 98
[2019-08-06] MEDS: ASPIRIN 81 MG ECTAB PO SCH (20:06)
[2019-08-06] MEDS: DOCUSATE SODIUM/SENNA 50/8.6MG TAB PO SCH (20:06)
[2019-08-07] MEDS: POLYETHYLENE (MIRALAX) 17 GM PACK PO SCH ×3 (05:15→21:39)
[2019-08-07] MEDS: OXYCODONE HCL IR 5 MG TAB (IMMEDIATE RELEASE) PO PRN ×2 (05:17→19:00)
[2019-08-07 05:58] LABS: Hematocrit (blood only) 29.9 % (42-52); Hemoglobin 10.2 g/dL (14.0-18.0); Mean Corpuscular Hemoglobin 32.3 pg (25-34); Mean Corpuscular Hgb Conc 34.1 g/dL (32-36); Mean Corpuscular Volume 94.6 fL (80-100); Mean Platelet Volume 9.3 fL (7.4-10.4); Platelet Count 222 K/uL (130-400); RDW Coefficient of Variation 13.7 % (11.5-14.5); RDW Standard Deviation 47.4 fL (36.4-46.3); Red Blood Count 3.16 M/uL (4.7-6.1); White Blood Count 11.52 K/uL (4.8-10.8)
--- NOTE | 2019-08-07 09:05 | Hospitalist Progress Note ---
Date of Service August 07, 2019 Assessment & Plan (1) Neurogenic claudication due to lumbar spinal stenosis: POD #[address] Mederos Actual Procedures #1 lumbar decompression medial facetectomy foraminotomies L1-L2 L2-3 L3-4 L4-5. #2 posterior spinal fusion L1-L2 L3-L4-L5. #3 placement posterior segmental instrumentation L1-L5. #4 interbody fusion L3-4 L4-5. #5 placed a peek cage 12 x 26 mm at L3-4 and 13 x 26 mm at L4-5. #6 placement of locally harvested versus autograft in the posterior lateral gutters. #7 placement infuse collagen sponge, master graft in the posterior lateral gutters and ostial amp and body space. Pt with EBL 1,000ml; MILAN drain outpt 425ml H/H post op improving to 10.2/29.9 pain/wound management per ortho activity and therapy as directed by ortho encourage incentive spirometry (2) Postoperative anemia due to acute blood loss: EBL 1000ml; MILAN drain still with output H/H post op increasing to 10.2/29.9 monitor (3) Hypertension: blood pressure improved resume amlodipine/lisinopril (4) HLD (hyperlipidemia): Previously on statin pt currently states not taking atorvastatin Last cholesterol panel 03/2019 CHOL 216, LDL 118, HDL 84, trig 69 (5) Laceration of occipital scalp: sukhi to laceration of occiptal scalp placed 08/01/19 - to remain in 10-14 days clean bandage to area (6) Abnormal CT scan, chest: Done pre operatively 08/03/19: CT scan chest revealed:1. Multiple small bilateral calcified granulomas. Few punctate bilateral noncalcified pulmonary nodules, nonspecific. Consider a follow up chest CT in 12 months for re-evaluation. 2. Dilated ascending aorta measuring up to 4.4 x 4.4 cm. Continued attention on the follow up studies suggested. 3. A small probable hemangioma in segment 2 of the liver measuring 1.5 cm. An irregular enhancing focus in the dome of the liver, not further characterized on this exam. An additional irregular hypodensity in the posterior dome of the liver measuring 2.1 x 1.6 cm, not further characterized on this exam. Further evaluation with an abdominal MRI is suggested. 4. Multiple tiny pancreatic cystic lesions, not further evaluated with CT. Consider further evaluation with an abdominal MRI and MRCP. Will need further evaluation as outpt with PCP upon discharge (7) DVT prophylaxis: SCD/TEDS per ortho Disposition: per primary Follow up: PCP Dr. Dickey upon discharge Patient was seen and examined in collaboration with Dr. Rubin, please see addendum Thank you for this consultation. We will follow the patient with you during their hospital stay. You can reach a [facility] via pager @ [phone]. Supervising Physician Co-Signing Physician Notes I have seen and examined the patient and have discussed the case with the provider above. I agree with the assessment and plan as stated. Pt states the pain was severe last night but controlled with oxycodone. He is feeling better today and tolerating food. Plan for possible DC in am. Physical exam findings are same as above. Recommend outpatient follow-up with primary care provider within one week of discharge. DO Elis Rubin Patient seen and examined in room 324. Follow-up lumbar decompression/fusion by Dr. Mederos POD #2. He offers no complaints or concerns. Mild decrease in appetite secondary to abdominal bloating. He is passing gas but no BM. Drinking prune juice breakfast. Mild incisional discomfort. Denies fever, chills, sweats, chest pain, shortness of breath, lightheadedness, dizziness, nausea, vomiting, abdominal pain, difficulty with urination. Physical therapy has been going well so far. We did discuss laceration on his head. To have sukhi removed next Saturday. Discussed where he can get his sukhi removed. Review of Systems Review of Systems: All systems reviewed & are unremarkable except as noted in HPI & below Physical Exam Physical Exam: Gen: WD/WN, M, NAD, A&O x3 HEENT: Normocephalic, + occipital laceration, sukhi intact clean and dry, conjunctivae moist, sclerae anicteric, mucous membranes moist. Lung: Clear to Auscultation bilaterally, no wheezes/rales/rhonchi Heart: Regular rate, regular rhythm, no murmurs, rubs, or gallops Abdomen: Soft, NT, ND +BS x 4 Extremities: No edema, lumbar dressing CDI, MILAN drain intact with serosanguineous drainage Skin: Warm, no rash, negative turgor. Results & Data Vital Signs (Past 12 Hours) Vital Signs Temp Pulse Pulse Resp BP Pulse Ox 08/07/19 07:54 36.9 C 75 14 136/70 93 08/07/19 06:35 36.8 C 81 16 130/70 95 08/06/19 23:42 37.2 C 79 16 136/75 94 Laboratory Results Short CBC 08/07/19 Range/Units 05:32 WBC 11.52 H (4.8-10.8) K/uL Hgb 10.2 L (14.0-18.0) g/dL Hct 29.9 L (42-52) % Plt Count 222 (130-400) K/uL Medications Administered Acetaminophen (Tylenol) 1,000 mg PO Q8H PRN PRN Reason: MILD Pain Rating 1,2,3 Stop: 09/04/19 14:33 Last Admin: 08/06/19 05:08 Dose: 1,000 mg Documented by: [id number] Amlodipine Besylate (Norvasc) 5 mg PO QPM [facility] Stop: 09/04/19 20:59 Last Admin: 08/05/19 20:22 Dose: 5 mg Documented by: [id number] Aspirin (Ecotrin Ectab) 81 mg PO QPM [facility] Stop: 09/04/19 20:59 Last Admin: 08/06/19 20:06 Dose: 81 mg Documented by: [id number] Admin: 08/05/19 20:22 Dose: 81 mg Documented by: [id number] Lisinopril (Zestril) 20 mg PO QPM [facility] Stop: 09/04/19 20:59 Last Admin: 08/05/19 20:23 Dose: 20 mg Documented by: [id number] Oxycodone HCl (Roxicodone Immediate Rel) 5 - 10 mg PO Q4H PRN PRN Reason: Moderate-Severe Pain Stop: 08/19/19 14:33 Last Admin: 08/07/19 05:17 Dose: 10 mg Documented by: [id number] Polyethylene Glycol (Miralax Powder Packet) 17 gm PO Q6 [facility] Stop: 09/05/19 05:59 Last Admin: 08/07/19 05:15 Dose: Not Given Documented by: [id number] Admin: 08/06/19 23:51 Dose: Not Given Documented by: [id number] Admin: 08/06/19 18:48 Dose: 17 gm Documented by: [id number] Admin: 08/06/19 11:59 Dose: 17 gm Documented by: [id number] Admin: 08/06/19 05:02 Dose: 17 gm Documented by: [id number] Senna/Docusate Sodium (Senokot S) 2 tab PO HS [facility] Stop: 09/04/19 20:59 Last Admin: 08/06/19 20:06 Dose: 2 tab Documented by: [id number] Admin: 08/05/19 20:23 Dose: 2 tab Documented by: [id number] Discontinued Medications Acetaminophen (Tylenol) 1,000 mg PO PREOP K[facility]INA Stop: 08/05/19 18:00 Last Admin: 08/05/19 07:56 Dose: 1,000 mg Documented by: [id number] Bacitracin (Bacitracin) Confirm Administered Dose 50,000 units .ROUTE .STK-MED ONE Stop: 08/05/19 08:57 Last Admin: 08/05/19 10:21 Dose: 50,000 units Documented by: [id number] Bupivacaine HCl/Epinephrine Bitart (Bupivacaine 0.25%-Epi [id number]) Confirm Administered Dose 30 ml .ROUTE .STK-MED ONE Stop: 08/05/19 08:56 Last Admin: 08/05/19 09:46 Dose: 29 ml Documented by: [id number] Celecoxib (Celebrex) 200 mg PO PREOP [facility]INA Stop: 08/05/19 18:00 Last Admin: 08/05/19 07:56 Dose: 200 mg Documented by: [id number] Gabapentin (Neurontin) 300 mg PO PREOP [facility]INA Stop: 08/05/19 18:00 Last Admin: 08/05/19 07:56 Dose: 300 mg Documented by: [id number] Lactated Ringer's (Lr) 1,000 mls @ 15 mls/hr IV .Q24H [facility] Stop: 08/06/19 05:59 Last Infusion: 08/05/19 14:42 Dose: 0 mls/hr Documented by: [id number] Infusion: 08/05/19 09:12 Dose: 0 mls/hr Documented by: [id number] Admin: 08/05/19 07:57 Dose: 15 mls/hr Documented by: [id number] Cefazolin Sodium (Ancef 2000mg) 2,000 mg in 15 mls @ 3.75 mls/min IV PREOP KARINA; Protocol Stop: 08/05/19 18:00 Last Admin: 08/05/19 09:12 Dose: 3.75 mls/min Documented by: [id number] Lactated Ringer's (Lr) 1,000 mls @ 150 mls/hr IV .Q6H40M [facility] Stop: 09/04/19 14:33 Last Admin: 08/06/19 05:01 Dose: Not Given Documented by: [id number] Infusion: 08/06/19 05:01 Dose: 0 mls/hr Documented by: [id number] Admin: 08/05/19 23:54 Dose: 150 mls/hr Documented by: [id number] Infusion: 08/05/19 23:53 Dose: 150 mls/hr Documented by: [id number] Infusion: 08/05/19 22:26 Dose: 150 mls/hr Documented by: [id number] Admin: 08/05/19 17:13 Dose: 150 mls/hr Documented by: [id number] Cefazolin Sodium (Ancef 2000mg) 2,000 mg in 15 mls @ 3.75 mls/min IV Q8H [facility]; Protocol Stop: 08/06/19 01:03 Last Admin: 08/05/19 23:54 Dose: 3.75 mls/min Documented by: [id number] Admin: 08/05/19 17:05 Dose: 3.75 mls/min Documented by: [id number] Ketorolac Tromethamine (Toradol) 30 mg IV Q6H [facility] Stop: 08/06/19 10:01 Last Admin: 08/06/19 09:23 Dose: 30 mg Documented by: [id number] Admin: 08/06/19 05:00 Dose: 30 mg Documented by: [id number] Admin: 08/05/19 21:24 Dose: 30 mg Documented by: [id number] Admin: 08/05/19 17:05 Dose: 30 mg Documented by: [id number] Miscellaneous (Floseal Hemostatic Matrix 10ml) 34 ml TOP ONCE ONE Stop: 08/05/19 12:41 Last Admin: 08/05/19 14:43 Dose: Not Given Documented by: [id number] (1) Laceration of occipital scalp Encounter type: initial encounter Qualified Code(s): S01.01XA - Laceration without foreign body of scalp, initial encounter
[2019-08-07] MEDS: ACETAMINOPHEN 500 MG TAB PO PRN ×2 (10:16→23:55)
--- NOTE | 2019-08-07 10:53 | Orthopedic Progress Note ---
Date of Service August 07, 2019 Assessment & Plan (1) Neurogenic claudication due to lumbar spinal stenosis: This time we will continue physical therapy monitor MILAN output anticipate discharge home tomorrow with home health for drain management. Present on Admission?: Yes Subjective Patient's back pain is controlled leg pain improved. Physical Exam Physical Exam: Patient is good strength testing appears comfortable. Results & Data Vital Signs (Past 12 Hours) Vital Signs Temp Pulse Pulse Resp BP Pulse Ox 08/07/19 07:54 36.9 C 75 14 136/70 93 08/07/19 06:35 36.8 C 81 16 130/70 95 08/06/19 23:42 37.2 C 79 16 136/75 94
[2019-08-07] MEDS ORDERED: AMLODIPINE BESYLATE 5 MG TAB PO SCH (21:00)
[2019-08-07] MEDS ORDERED: LISINOPRIL 20 MG TAB PO SCH (21:00)
[2019-08-07] MEDS: DOCUSATE SODIUM/SENNA 50/8.6MG TAB PO SCH (21:38)
[2019-08-07] MEDS: ASPIRIN 81 MG ECTAB PO SCH (21:39)
[2019-08-08] MEDS: POLYETHYLENE (MIRALAX) 17 GM PACK PO SCH ×2 (06:04→10:49)
--- NOTE | 2019-08-08 09:05 | Discharge Summary ---
Date of Service August 08, 2019 Admission HPI Per Admitting Provider This is a 69-year-old male who presents with chronic persistent back and leg pain. After failing extensive course of nonoperative care is here for surgical intervention. Admission Exam (Per Admitting) Constitutional WD/WN, vitals as above Eyes normal visual gage by confrontation ENMT external ear and nose normal, oropharynx normal Neck normal visual inspection Respiratory normal respiratory effort Cardiovascular Extremities: normal capillary refill Gastrointestinal (Abdomen) Inspection/Auscultation: abdomen normal to inspection Musculoskeletal Extremities: extremities normal to inspection and strength 5/5 throughout Skin no rashes, warm and dry Neurologic normal touch/pain/proprioception, deep tendon reflexes 2+ bilaterally and moves all extremities Psychiatric A+Ox3, euthymic affect Discharge Data Consultations 08/05/19 14:34 Consult Case Management - Discharge Planning Routine Consult Hospitalist Routine Procedures Performed Operation Date: 08/05/19 09:05 Actual Procedures p L1-L5 Posterior Lumbar Decompression and Fusion, Interbody placement L3-L4, L4-L5 with Crosslink and Spinal Cord Monitoring, Application of Bone Morphogenetic Protein and Allograft(Not Applicable) - Antoine Mederos, Hospital Course (1) Neurogenic claudication due to lumbar spinal stenosis: Patient had an uncomplicated postoperative course status post lumbar fusion. He is being discharged home with home health due to continued MILAN output. This is discharge upon postoperative day 3. He is ambulating the hallways independently. Pain is well controlled. He has had a bowel movement. Discharge Instructions ACTIVITY RECOMMENDATIONS: SELF CARE INSTRUCTIONS AFTER THORACIC/LUMBAR FUSIONS 1. You may walk to your tolerance. It is good exercise for your legs and back. Expect some back and intermittent leg aches and pains. 2. You may perform "counter-top" level activities (make a sandwich, suzette with a project, etc.). 3. No bending or lifting of more than 10 pounds or back twisting of any nature (roll like a log when turning in bed). 4. You may ride in a car for 20-30 minutes at a time. No driving until after your first visit with your doctor. 5. Frequent changes of position and restricting sitting to 30 minutes at a time will help limit the amount of back spasms and stiffness you may experience. 6. You may discontinue the use of ambulatory aids (cane, crutches, etc.) once your strength and confidence allow. 7. You may mixing pan tender the shower and let water strike your incision when you arrive home at least once daily. Do not take a tub bath, sit in a hot tub or go into a swimming pool until after your first recheck in the office. SPECIAL CARE INSTRUCTIONS: VERY IMPORTANT TO READ AND REVIEW A. Your surgical incision has been closed with a cosmetic suture under the skin that will dissolve in about 6 weeks. In 14 days, you can use a pair of clean scissors and cut the suture that is left outside of the skin at the ends of your incision. 1. The small skin tapes can be removed 7 days after surgery if they have not fallen off by that point. 2. You may keep the wound open to air as much as possible to promote healing after post-op day number 5 unless told otherwise by your doctor. 3. If you think the wound looks like it is becoming infected (redness or worsening drainage) and/or you are experiencing fever, chill or worsening back pain and muscle spasms, contact the office so that we may chago luate you as soon as possible. B. Complications are uncommon, but please contact us if you have any signs or symptoms of: 1. wound infection (fever higher than 102.5 degrees F, redness, separation of wound, drainage, or increasing pain from the incision) 2. blood clots in legs (pain, swelling, redness and warmth in legs) 3. urinary tract infection (fever higher than 102.5 degrees F, burning upon urination or increased frequency of urination) 4. nerve problems (inability to walk on your toes or heels, numbness, loss of bowel or bladder control) 5. any other symptoms that concern you C. Please call the office at if you have any concerns or questions about your operation or recovery. D. No smoking! Smoking drastically decreases the chance of a solid fusion. E. Do not take any anti-inflammatory medications (Indocin, Advil, Motrin, As pirin, Naprosyn, etc.) as these may inhibit the chance of a solid fusion. Tylenol is okay to take for pain. MANAGING PAIN AFTER SPINAL SURGERY 1. Narcotic medication is intended for short-term use and will be provided for surgical pain. Surgical pain usually lasts for a period of 4-6 weeks. Narcotic medication includes Percocet, Vicodin, Darvocet, Tylenol #3 or Lortab. 2. Longer-term pain is more appropriately treated with non-narcotic medication such as Tylenol ES. 3. Muscle spasm is not appropriately treated with narcotics. Muscle relaxers such as Soma, Flexeril or Skelaxin can be used along with Tylenol ES. 4. Remember that we all live with some "aches and pains". This is not unusual or uncommon after an injury or as we get older. a. Back pain is expected and may include muscle spasms for 4 to 6 weeks after surgery. The pain should gradually improve. If the pain worsens for no apparent reason, please contact the office. b. Intermittent leg pain may also be experienced and should not be concerned about unless it worsens for no apparent reason. If so, please contact the office. 5. We will provide appropriate medication within the normal guidelines of their prescribed use. We will also be very cautious and aware of potential abuse and extended duration of patients' medication needs. a. Pain medications are for your comfort and to assist with sleep and rest so that the tissue can heal. They are not provided in order to return to normal activity and should not be used through the day. To do so or worsening pain at night can result from ongoing tissue damage and development of tolerance to the prescribed medicine. 6. Please allow 2-3 days to process refills. Prescriptions will not be mailed but must be picked up at the office. FOLLOW UP VISIT: Keep your scheduled follow-up appointment. Any questions, please call the office at . Supervising Physician Co-Signing Physician Notes Dr. Antoine Mederos
--- NOTE | 2019-08-08 09:06 | Discharge Summary ---
Date of Service August 08, 2019 Admission HPI Per Admitting Provider This is a 69-year-old male who presents with chronic persistent back and leg pain. After failing extensive course of nonoperative care is here for surgical intervention. Discharge Data Consultations 08/05/19 14:34 Consult Case Management - Discharge Planning Routine Consult Hospitalist Routine Procedures Performed Operation Date: 08/05/19 09:05 Actual Procedures p L1-L5 Posterior Lumbar Decompression and Fusion, Interbody placement L3-L4, L4-L5 with Crosslink and Spinal Cord Monitoring, Application of Bone Morphogenetic Protein and Allograft(Not Applicable) - Antoine Mederos DO
[2019-08-08] MEDS: OXYCODONE HCL IR 5 MG TAB (IMMEDIATE RELEASE) PO PRN (12:17)
== END 2019-08-08 12:44 | disposition home health service (06) | DRG 454 ==
LOC: ASU 06:34 → 3E 13:23